=== PATIENT | male | born 1970 | race African-American/Black ===

== ENCOUNTER 2016-10-04 18:12 | Emergency (ER) | payer MEDICAID, OTHER ==
[~2016-10-04] VITALS: Ht 172.7 cm; Wt 94.5 kg
[~2016-10-04 18:12] MED LIST: ACET-2902 PO; OMEP20 PO; ONDA4 PO
[2016-10-04] MEDS ORDERED: PANTOPRAZOLE SODIUM 80 MG in SODIUM CHLORIDE 0.9% 50 ML IV ONE (19:30)
[2016-10-04] MEDS ORDERED: SODIUM CHLORIDE 0.9% 1,000 ML IV ONE (19:30)
[2016-10-04] MEDS ORDERED: HYDROmorphone 2 MG/ML SYRINGE IVP ONE (19:30)
[2016-10-04] MEDS ORDERED: ONDANSETRON HCL 4 MG/2 ML VIAL IVP ONE (19:30)
[2016-10-04] MEDS ORDERED: BARIUM SULFATE 0.1% SUSPENSION 450 ML BOTTLE PO ONE (19:30)
[2016-10-04 20:06] LABS: MONOCYTES # (AUTO) 0.6 K/uL (0.1-1.0)
[2016-10-04 20:09] LABS: BASOPHILS % (AUTO) 0.8 % (0.0-2.0); EOSINOPHILS % (AUTO) 4.7 % (1.0-6.0); HEMATOCRIT 50.3 % (41-53); LYMPHOCYTES # (AUTO) 2.7 K/uL (1.0-4.8); LYMPHOCYTES % (AUTO) 40.5 % (22.0-44.0); MEAN CORPUSCULAR HEMOGLOBIN 30.8 pg (26.0-34.0); MEAN CORPUSCULAR HGB CONC 33.8 G/dL (31.0-37.0); MEAN CORPUSCULAR VOLUME 91 fL (80-100); PLATELET COUNT (AUTO) 237 K/uL (150-450); RED BLOOD CELL COUNT(AUTO) 5.51 MIL/uL (4.50-5.90); WHITE BLOOD COUNT (AUTO) 6.7 K/uL (4.5-11.0)
[2016-10-04 20:17] LABS: ANION GAP 6 mmol/L (8-16); CALCIUM, TOTAL 9.6 mg/dL (8.8-10.5); CARBON DIOXIDE 31 mmol/L (22-29); CHLORIDE 105 mmol/L (98-107); CREATININE 1.09 mg/dL (0.60-1.30); GLOMERULAR FILTR. RATE CALC > 60 mL/min (>60); POTASSIUM 3.4 mmol/L (3.5-5.1); SODIUM SERUM 142 mmol/L (136-145); UREA NITROGEN, BLOOD 8 mg/dL (7-18)
[2016-10-04 20:24] LABS: ALANINE AMINOTRANSFERASE 31 U/L (12-78); ALBUMIN 3.9 g/dL (3.4-5.0); ASPARTATE AMINOTRANSFERASE 23 U/L (15-37); BILIRUBIN,TOTAL 0.8 mg/dL (0.1-1.0); TOTAL PROTEIN, SERUM 7.9 g/dL (6.4-8.2)
[2016-10-04 20:25] LABS: LACTIC ACID 0.5 mmol/L (0.4-2.0)
[2016-10-04 20:27] LABS: B-TYPE NATRIURETIC PEPTIDE 12 pg/mL (0-100)
[2016-10-04] MEDS ORDERED: SODIUM CHLORIDE 0.9% 100 ML ONE (20:47)
[2016-10-04] MEDS ORDERED: IOVERSOL 350 MG/ML 150 ML VIAL ONE (20:47)
[2016-10-04 22:56] VITALS: BP 149/97
== END 2016-10-04 22:59 | disposition home or self-care (01) ==
LOC: EMS 18:13
DX: K29.70 Gastritis, unspecified, without bleeding (principal); K21.9 Gastro-esophageal reflux disease without esophagitis; E87.6 Hypokalemia; F17.210 Nicotine dependence, cigarettes, uncomplicated; F12.90 Cannabis use, unspecified, uncomplicated
CPT/HCPCS: 36415; 71010; 74177; 80053; 83605; 83690; 83880; 84484; 85025; 93005; 96365; 96366; 96375; 99285; 99406; C9113; J1170; J2405; J7030; J7050 ×2; Q9967; Z7610

== ENCOUNTER 2018-02-20 13:46 | Emergency (ER) | payer OTHER ==
[~2018-02-20] VITALS: Ht 172.7 cm; Wt 84.1 kg
[2018-02-20 13:49] VITALS: BP 140/63
[2018-02-20 16:02] LABS: AMPHET/METH SCREEN,URINE NEGATIVE (NEGATIVE); BARBITURATE SCREEN, URINE NEGATIVE (NEGATIVE); BENZODIAZEPINES SCREEN,URINE NEGATIVE (NEGATIVE); CANNABINOID SCREEN,URINE POSITIVE (NEGATIVE); COCAINE SCREEN,URINE POSITIVE (NEGATIVE); METHADONE SCREEN, URINE NEGATIVE (NEGATIVE); OPIATE SCREEN,URINE NEGATIVE (NEGATIVE)
[2018-02-20 16:06] LABS: PHENCYCLIDINE SCREEN,URINE NEGATIVE (NEGATIVE)
[2018-02-20 16:08] LABS: APPEARANCE,URINE CLEAR (CLEAR); BILIRUBIN,URINE NEGATIVE (NEGATIVE); GLUCOSE, URINE (UA) NEGATIVE (NEGATIVE); KETONES,URINE NEGATIVE (NEGATIVE); LEUKOCYTE ESTERASE ,URINE NEGATIVE (NEGATIVE); NITRATE,URINE NEGATIVE (NEGATIVE); OCCULT BLOOD,URINE NEGATIVE (NEGATIVE); PROTEIN,URINE NEGATIVE (NEGATIVE); UROBILINOGEN,URINE 0.2 mg/dL (<=1.0)
[2018-02-20] MEDS ORDERED: ONDANSETRON HCL 4 MG TABLET PO ONE (16:15)
[2018-02-20] MEDS ORDERED: FAMOTIDINE 20 MG TABLET PO ONE (16:15)
== END 2018-02-20 16:16 | disposition left against medical advice (07) ==
LOC: EMS 13:47
DX: R10.84 Generalized abdominal pain (principal); R11.0 Nausea; F12.90 Cannabis use, unspecified, uncomplicated; F17.210 Nicotine dependence, cigarettes, uncomplicated
CPT/HCPCS: 93005

== ENCOUNTER 2018-03-21 19:55 | Emergency (ER) | payer OTHER ==
[~2018-03-21] VITALS: Ht 170.2 cm; Wt 81.8 kg
[2018-03-21] MEDS ORDERED: KETOROLAC TROMETHAMINE 30 MG/ML VIAL IM ONE (22:45)
[2018-03-21] MEDS ORDERED: CEPHALEXIN MONOHYDRATE 500 MG CAPSULE PO ONE (22:45)
[2018-03-21 23:05] VITALS: BP 147/88
== END 2018-03-21 23:05 | disposition home or self-care (01) ==
LOC: EMS 19:56
DX: L03.012 Cellulitis of left finger (principal); F12.90 Cannabis use, unspecified, uncomplicated; F17.210 Nicotine dependence, cigarettes, uncomplicated
CPT/HCPCS: 96372; 99283; J1885

== ENCOUNTER 2018-03-25 16:52 | Emergency (ER) | payer OTHER ==
[~2018-03-25] VITALS: Ht 172.7 cm; Wt 81.8 kg
[2018-03-25] MEDS ORDERED: CEPH500 PO (16:59)
[2018-03-25] MEDS ORDERED: KETOROLAC TROMETHAMINE 10 MG TABLET PO ONE (18:15)
[2018-03-25 19:28] VITALS: BP 146/99
== END 2018-03-25 19:46 | disposition home or self-care (01) ==
LOC: EMS 16:53
DX: L03.012 Cellulitis of left finger (principal); F17.210 Nicotine dependence, cigarettes, uncomplicated; F12.90 Cannabis use, unspecified, uncomplicated

== ENCOUNTER 2019-09-06 11:09 | Emergency (ER) | payer OTHER ==
[~2019-09-06] VITALS: Ht 172.7 cm; Wt 89.0 kg
[~2019-09-06 11:09] MED LIST changes: -ACET-2902 PO; +CEPH500 PO; -OMEP20 PO; -ONDA4 PO
[2019-09-06] MEDS ORDERED: OMEP10 PO (11:18)
[2019-09-06 12:53] LABS: HEMATOCRIT 52.2 % (41-53); HEMOGLOBIN 17.7 g/dL (13.5-17.5); LYMPHOCYTES # (AUTO) 0.9 K/uL (1.0-4.8); LYMPHOCYTES % (AUTO) 15.8 % (22.0-44.0); MEAN CORPUSCULAR HEMOGLOBIN 33.4 pg (26.0-34.0); MEAN CORPUSCULAR VOLUME 98 fL (80-100); MONOCYTES # (AUTO) 0.6 K/uL (0.1-1.0); MONOCYTES % (AUTO) 10.1 % (2.0-9.0); NEUTROPHILS # (AUTO) 3.9 K/uL (1.8-7.7); NEUTROPHILS % (AUTO) 70.1 % (40.0-70.0); PLATELET COUNT (AUTO) 211 K/uL (150-450); RED BLOOD CELL COUNT(AUTO) 5.31 MIL/uL (4.50-5.90); RED CELL DISTRIBUTION WIDTH 14.3 % (11.5-14.5)
[2019-09-06] MEDS ORDERED: HYDROCODONE/ACETAMINOPHEN 10-325 MG TABLET PO ONE (13:00)
[2019-09-06] MEDS ORDERED: DICYCLOMINE HCL 10 MG/ML 2 ML AMP IM ONE (13:00)
[2019-09-06 13:09] LABS: ANION GAP 8 mmol/L (8-16); CARBON DIOXIDE 31 mmol/L (22-29); CHLORIDE 103 mmol/L (98-107); CREATININE 0.96 mg/dL (0.60-1.30); GLUCOSE,RANDOM 98 mg/dL (70-110); POTASSIUM 3.9 mmol/L (3.5-5.1); SODIUM SERUM 142 mmol/L (136-145); UREA NITROGEN, BLOOD 10 mg/dL (7-18)
[2019-09-06 13:10] LABS: GLOMERULAR FILTR. RATE CALC > 60 mL/min (>60)
[2019-09-06 13:16] LABS: ALANINE AMINOTRANSFERASE 37 U/L (12-78); ALBUMIN 3.8 g/dL (3.4-5.0); ALKALINE PHOSPHATASE 57 U/L (46-116); ASPARTATE AMINOTRANSFERASE 27 U/L (15-37); BILIRUBIN,TOTAL 0.9 mg/dL (0.1-1.0); LIPASE 121 U/L (73-393); TOTAL PROTEIN, SERUM 7.4 g/dL (6.4-8.2)
[2019-09-06 14:27] LABS: APPEARANCE,URINE CLOUDY (CLEAR); GLUCOSE, URINE (UA) NEGATIVE (NEGATIVE); KETONES,URINE TRACE mg/dL (NEGATIVE); LEUKOCYTE ESTERASE ,URINE SMALL (NEGATIVE); NITRATE,URINE NEGATIVE (NEGATIVE); OCCULT BLOOD,URINE NEGATIVE (NEGATIVE); PH,URINE 7.5 (5.0-8.0); PROTEIN,URINE SEE CONFIRM (NEGATIVE)
[2019-09-06 14:34] LABS: AMPHET/METH SCREEN,URINE NEGATIVE (NEGATIVE); BARBITURATE SCREEN, URINE NEGATIVE (NEGATIVE); BENZODIAZEPINES SCREEN,URINE NEGATIVE (NEGATIVE); CANNABINOID SCREEN,URINE POSITIVE (NEGATIVE); COCAINE SCREEN,URINE POSITIVE (NEGATIVE); METHADONE SCREEN, URINE NEGATIVE (NEGATIVE); OPIATE SCREEN,URINE NEGATIVE (NEGATIVE)
[2019-09-06 14:39] LABS: BILIRUBIN,URINE PRELIM. POSITIVE (NEGATIVE); PHENCYCLIDINE SCREEN,URINE NEGATIVE (NEGATIVE)
[2019-09-06 14:40] LABS: BACTERIA,URINE None Seen /HPF (None Seen); RBC,URINE None Seen /HPF (0-2); SULFOSALICYLIC ACID,URINE 2+ (Negative)
[2019-09-06 14:56] VITALS: BP 129/81
[2019-09-06] MEDS ORDERED: DICYCLOMINE HCL 20 MG TABLET PO ONE (15:15)
== END 2019-09-06 15:26 | disposition home or self-care (01) ==
LOC: EMS 11:14
DX: F12.288 Cannabis dependence with other cannabis-induced disorder (principal)
CPT/HCPCS: 36415; 74022; 80053; 80307; 81001; 83690; 84484; 85025; 93005; 96372; 99285; J0500

== ENCOUNTER 2019-09-21 13:31 | Emergency (ER) | payer OTHER ==
[~2019-09-21] VITALS: Ht 172.7 cm; Wt 93.2 kg
[~2019-09-21 13:31] MED LIST changes: -CEPH500 PO; +OMEP10 PO
[2019-09-21 13:48] VITALS: BP 144/83
[2019-09-22] MEDS ORDERED: DICY10 PO (08:31)
== END 2019-09-21 16:14 | disposition left against medical advice (07) ==
LOC: EMS 13:36
DX: R10.9 Unspecified abdominal pain (principal); Z53.21 Procedure and treatment not carried out due to patient leaving prior to being seen by health care provider

== ENCOUNTER 2019-09-22 08:23 | Emergency (ER) | payer OTHER ==
[~2019-09-22] VITALS: Ht 172.7 cm; Wt 93.2 kg
[2019-09-22] MEDS ORDERED: DICY10 PO (08:31)
[2019-09-22] MEDS ORDERED: SODIUM CHLORIDE 0.9% 1,000 ML IV ONE ×3 (09:00→12:15)
[2019-09-22] MEDS ORDERED: ONDANSETRON HCL 4 MG/2 ML VIAL IVP ONE ×2 (09:00→12:30)
[2019-09-22] MEDS ORDERED: FAMOTIDINE 10 MG/ML 2 ML VIAL IVP ONE (09:15)
[2019-09-22] MEDS ORDERED: PB/HYOSCY/ATR/SCOP/LIDO/MAALOX 55 ML BOTTLE PO ONE (09:15)
[2019-09-22 09:32] LABS: BASOPHILS % (AUTO) 0.5 % (0.0-2.0); EOSINOPHILS % (AUTO) 2.3 % (1.0-6.0); HEMATOCRIT 54.3 % (41-53); HEMOGLOBIN 18.7 g/dL (13.5-17.5); LYMPHOCYTES # (AUTO) 1.7 K/uL (1.0-4.8); LYMPHOCYTES % (AUTO) 21.5 % (22.0-44.0); MEAN CORPUSCULAR HEMOGLOBIN 33.5 pg (26.0-34.0); MEAN CORPUSCULAR HGB CONC 34.5 G/dL (31.0-37.0); MEAN CORPUSCULAR VOLUME 97 fL (80-100); MONOCYTES # (AUTO) 0.7 K/uL (0.1-1.0); MONOCYTES % (AUTO) 9.3 % (2.0-9.0); NEUTROPHILS # (AUTO) 5.3 K/uL (1.8-7.7); NEUTROPHILS % (AUTO) 66.4 % (40.0-70.0); PLATELET COUNT (AUTO) 269 K/uL (150-450); RED BLOOD CELL COUNT(AUTO) 5.58 MIL/uL (4.50-5.90); RED CELL DISTRIBUTION WIDTH 14.7 % (11.5-14.5)
[2019-09-22 09:36] LABS: ANION GAP 8 mmol/L (8-16); CALCIUM, TOTAL 9.4 mg/dL (8.8-10.5); CARBON DIOXIDE 32 mmol/L (22-29); CHLORIDE 101 mmol/L (98-107); CREATININE 1.13 mg/dL (0.60-1.30); GLOMERULAR FILTR. RATE CALC > 60 mL/min (>60); GLUCOSE,RANDOM 111 mg/dL (70-110); SODIUM SERUM 141 mmol/L (136-145); UREA NITROGEN, BLOOD 9 mg/dL (7-18)
[2019-09-22 09:43] LABS: ALANINE AMINOTRANSFERASE 33 U/L (12-78); ALBUMIN 4.5 g/dL (3.4-5.0); ALKALINE PHOSPHATASE 65 U/L (46-116); ASPARTATE AMINOTRANSFERASE 23 U/L (15-37); BILIRUBIN,TOTAL 1.1 mg/dL (0.1-1.0); LIPASE 190 U/L (73-393); TOTAL PROTEIN, SERUM 9.1 g/dL (6.4-8.2)
[2019-09-22] MEDS ORDERED: KETOROLAC TROMETHAMINE 30 MG/ML VIAL IVP ONE ×2 (09:45→10:15)
[2019-09-22] MEDS ORDERED: IOVERSOL 350 MG/ML 150 ML VIAL ONE (09:53)
[2019-09-22] MEDS ORDERED: SODIUM CHLORIDE 0.9% 100 ML ONE (09:53)
[2019-09-22] MEDS ORDERED: POTASSIUM CHLORIDE 20 MEQ ER TABLET PO ONE (10:00)
[2019-09-22] MEDS ORDERED: MORPHINE SULFATE 2 MG/ML SYRINGE IVP ONE ×3 (10:30→11:30)
[2019-09-22] MEDS ORDERED: PANTOPRAZOLE SODIUM 40 MG/VIAL IVP ONE (10:30)
[2019-09-22] MEDS ORDERED: DICYCLOMINE HCL 10 MG/ML 2 ML AMP IM ONE (10:30)
[2019-09-22] MEDS ORDERED: DiphenhydrAMINE HCL 50 MG/ML VIAL IVP ONE (10:45)
[2019-09-22] MEDS ORDERED: METOCLOPRAMIDE HCL 5 MG/ML 2 ML VIAL IVP ONE (10:45)
[2019-09-22] MEDS ORDERED: PROCHLORPERAZINE EDISYLATE 5 MG/ML 2 ML VIAL IVP ONE (11:15)
[2019-09-22] MEDS ORDERED: LORazepam 2 MG/ML VIAL IVP ONE (12:15)
[2019-09-22 13:59] VITALS: BP 128/72
[2019-09-22 14:10] LABS: APPEARANCE,URINE CLEAR (CLEAR); BILIRUBIN,URINE NEGATIVE (NEGATIVE); GLUCOSE, URINE (UA) NEGATIVE (NEGATIVE); KETONES,URINE 15 mg/dL (NEGATIVE); LEUKOCYTE ESTERASE ,URINE NEGATIVE (NEGATIVE); NITRATE,URINE NEGATIVE (NEGATIVE); OCCULT BLOOD,URINE NEGATIVE (NEGATIVE); PROTEIN,URINE TRACE (NEGATIVE)
[2019-09-22 14:14] LABS: AMPHET/METH SCREEN,URINE NEGATIVE (NEGATIVE); BARBITURATE SCREEN, URINE NEGATIVE (NEGATIVE); BENZODIAZEPINES SCREEN,URINE NEGATIVE (NEGATIVE); CANNABINOID SCREEN,URINE POSITIVE (NEGATIVE); COCAINE SCREEN,URINE NEGATIVE (NEGATIVE); METHADONE SCREEN, URINE NEGATIVE (NEGATIVE); OPIATE SCREEN,URINE POSITIVE (NEGATIVE)
[2019-09-22 14:16] LABS: PHENCYCLIDINE SCREEN,URINE NEGATIVE (NEGATIVE)
[2019-09-22 14:17] LABS: BACTERIA,URINE None Seen /HPF (None Seen); RBC,URINE None Seen /HPF (0-2); WBC,URINE None Seen /HPF (0-5)
== END 2019-09-22 14:45 | disposition home or self-care (01) ==
LOC: EMS 08:37
DX: F12.188 Cannabis abuse with other cannabis-induced disorder (principal); R11.2 Nausea with vomiting, unspecified; E87.6 Hypokalemia; F17.210 Nicotine dependence, cigarettes, uncomplicated
CPT/HCPCS: 36415; 74177; 80053; 80307; 81001; 83605; 83690; 83735; 85025; 93005; 96361; 96372; 96374; 96375; 96376; 99285; C9113; J0500; J0780; J1200; J1885; J2060; J2270; J2405; J2765; J3490; J7030; J7050; Q9967

== ENCOUNTER 2019-11-02 16:22 | Emergency (ER) | payer OTHER ==
[~2019-11-02] VITALS: Ht 172.7 cm; Wt 102.3 kg
[~2019-11-02 16:22] MED LIST changes: +DICY10 PO
[2019-11-02] MEDS ORDERED: SODIUM CHLORIDE 0.9% 1,000 ML IV ONE ×2 (16:58→18:00)
[2019-11-02] MEDS ORDERED: ONDANSETRON HCL 4 MG/2 ML VIAL IVP ONE ×2 (17:00→22:30)
[2019-11-02 17:20] LABS: BASOPHILS % (AUTO) 0.1 % (0.0-2.0); EOSINOPHILS % (AUTO) 0.1 % (1.0-6.0); HEMOGLOBIN 18.3 g/dL (13.5-17.5); LYMPHOCYTES # (AUTO) 0.5 K/uL (1.0-4.8); LYMPHOCYTES % (AUTO) 6.6 % (22.0-44.0); MEAN CORPUSCULAR HEMOGLOBIN 32.1 pg (26.0-34.0); MEAN CORPUSCULAR HGB CONC 33.3 G/dL (31.0-37.0); MEAN CORPUSCULAR VOLUME 97 fL (80-100); MONOCYTES # (AUTO) 0.5 K/uL (0.1-1.0); MONOCYTES % (AUTO) 6.1 % (2.0-9.0); NEUTROPHILS # (AUTO) 7.1 K/uL (1.8-7.7); PLATELET COUNT (AUTO) 279 K/uL (150-450); RED BLOOD CELL COUNT(AUTO) 5.69 MIL/uL (4.50-5.90); RED CELL DISTRIBUTION WIDTH 14.6 % (11.5-14.5)
[2019-11-02 17:37] LABS: ALANINE AMINOTRANSFERASE 34 U/L (12-78); ALBUMIN 3.9 g/dL (3.4-5.0); ALKALINE PHOSPHATASE 78 U/L (46-116); ANION GAP 12 mmol/L (8-16); ASPARTATE AMINOTRANSFERASE 25 U/L (15-37); BILIRUBIN,TOTAL 1.3 mg/dL (0.1-1.0); CALCIUM, TOTAL 9.4 mg/dL (8.8-10.5); CARBON DIOXIDE 26 mmol/L (22-29); CHLORIDE 101 mmol/L (98-107); CREATININE 0.95 mg/dL (0.60-1.30); GLOMERULAR FILTR. RATE CALC > 60 mL/min (>60); GLUCOSE,RANDOM 191 mg/dL (70-110); LIPASE 105 U/L (73-393); SODIUM SERUM 139 mmol/L (136-145); TOTAL PROTEIN, SERUM 8.2 g/dL (6.4-8.2); UREA NITROGEN, BLOOD 6 mg/dL (7-18)
[2019-11-02 17:52] LABS: POTASSIUM 2.7 mmol/L (3.5-5.1)
[2019-11-02] MEDS ORDERED: POTASSIUM CHLORIDE 20 MEQ ER TABLET PO ONE ×2 (18:00→22:45)
[2019-11-02] MEDS ORDERED: DiphenhydrAMINE HCL 50 MG/ML VIAL IVP ONE (18:00)
[2019-11-02] MEDS ORDERED: HALOPERIDOL LACTATE 5 MG/ML VIAL IVP ONE (18:00)
[2019-11-02] MEDS ORDERED: IOVERSOL 320 MG/ML 100 ML VIAL ONE (18:06)
[2019-11-02] MEDS ORDERED: SODIUM CHLORIDE 0.9% 100 ML ONE (18:06)
[2019-11-02 18:11] LABS: NEUTROPHILS % (AUTO) 87.1 % (40.0-70.0)
[2019-11-02] MEDS: POTASSIUM CHL 10 MEQ/WATER 50 ML IV SCH ×3 (18:19→20:35)
[2019-11-02] MEDS ORDERED: MAGNESIUM SULFATE 2 GM, MVI, ADULT NO.1 WITH VIT K 10 ML, THIAMINE 100 MG, FOLIC ACID 1... IV ONE ×5 (18:30)
[2019-11-02 19:04] LABS: APPEARANCE,URINE CLEAR (CLEAR); BILIRUBIN,URINE NEGATIVE (NEGATIVE); GLUCOSE, URINE (UA) 100 mg/dL (NEGATIVE); KETONES,URINE 40 mg/dL (NEGATIVE); LEUKOCYTE ESTERASE ,URINE NEGATIVE (NEGATIVE); NITRATE,URINE NEGATIVE (NEGATIVE); OCCULT BLOOD,URINE NEGATIVE (NEGATIVE); PROTEIN,URINE POS 1+ (NEGATIVE)
[2019-11-02 19:10] LABS: AMPHET/METH SCREEN,URINE NEGATIVE (NEGATIVE); BARBITURATE SCREEN, URINE NEGATIVE (NEGATIVE); BENZODIAZEPINES SCREEN,URINE NEGATIVE (NEGATIVE); CANNABINOID SCREEN,URINE POSITIVE (NEGATIVE); COCAINE SCREEN,URINE NEGATIVE (NEGATIVE); METHADONE SCREEN, URINE NEGATIVE (NEGATIVE); OPIATE SCREEN,URINE NEGATIVE (NEGATIVE)
[2019-11-02 19:17] LABS: BACTERIA,URINE None Seen /HPF (None Seen); RBC,URINE None Seen /HPF (0-2); SQUAMOUS EPITHELIAL CELL,UR Few /LPF (None Seen); WBC,URINE 0-2 /HPF (0-5)
[2019-11-02 19:19] LABS: PHENCYCLIDINE SCREEN,URINE NEGATIVE (NEGATIVE)
[2019-11-02] MEDS ORDERED: SODIUM CHLORIDE 0.9% 500 ML IV ONE (21:21)
[2019-11-02] MEDS ORDERED: PB/HYOSCY/ATR/SCOP/LIDO/MAALOX 55 ML BOTTLE PO ONE (22:15)
[2019-11-02] MEDS ORDERED: CAPSAICIN 0.025% 60 GM CREAM TP ONE (22:45)
[2019-11-02 23:30] VITALS: BP 131/80
== END 2019-11-02 23:40 | disposition home or self-care (01) ==
LOC: EMS 16:22
DX: E87.6 Hypokalemia (principal); R10.9 Unspecified abdominal pain; R11.2 Nausea with vomiting, unspecified; F11.10 Opioid abuse, uncomplicated; F12.10 Cannabis abuse, uncomplicated
CPT/HCPCS: 36415; 71045; 74177; 80053; 80307; 81001; 83690; 83735; 84132; 84484; 85025; 87426; 93005; 96361; 96365; 96366; 96368; 96375; 96376; 99285; J1200; J1630; J2405; J3411; J3475; J3480; J3490 ×2; J7030; J7040; J7050; Q9967